=== PATIENT | female | born 1960 | race Caucasian/White ===

== ENCOUNTER 2023-07-22 11:40 | Outpatient (REF) | payer MEDICARE, MEDICAID, SELFPAY ==
[2023-07-22 12:10] LABS: MANUAL DIFF FLAG NO
[2023-07-22 12:27] LABS: Basophils Absolute Auto 0.1 X10*3/uL (0.0-0.2); Basophils Percent Auto 0.9 % (0-2); Eosinophils Absolute Auto 0.2 X10*3/uL (0.0-0.4); Eosinophils Percent Auto 4.2 % (0-4); Hematocrit 40.1 % (37.0-47.0); Hemoglobin 13.6 g/dl (12.0-16.0); Imm Gran Abs Auto 0.01 X10*3/uL (0.00-0.03); Imm Gran Pct Auto 0.2 % (0.0-0.4); Lymphocytes Absolute Auto 2.6 X10*3/uL (1.2-4.9); Lymphocytes Percent Auto 44.4 % (20-40); Mean Corpuscular HGB Conc 33.9 g/dl (31.0-35.0); Mean Corpuscular Hemoglobin 29.4 pg (27.0-33.0); Mean Corpuscular Volume 86.8 fL (80.0-98.0); Mean Platelet Volume 9.7 fL (9.4-12.3); Monocytes Absolute Auto 0.6 X10*3/uL (0.1-1.2); Monocytes Percent Auto 10.5 % (2-11); Neutrophils Absolute Auto 2.3 x10*3/uL (2.0-8.3); Neutrophils Percent Auto 39.8 % (45-73); Platelet Count 316 X10*3/uL (160-400); Red Blood Count 4.62 X10*6/uL (4.20-5.50); White Blood Count 5.7 X10*3/uL (4.8-10.8)
[2023-07-22 13:16] LABS: Alanine Aminotransferase 16 U/L (0-31); Albumin Level 4.2 g/dL (3.5-5.0); Alkaline Phosphatase 72 U/L (39-117); Anion Gap 10 (12-20); Aspartate Amino Transferase 22 U/L (5-31); Bilirubin Total 0.4 mg/dL (0.0-1.0); Blood Urea Nitrogen 6 mg/dL (9-16); Calcium 9.6 mg/dL (8.4-10.2); Carbon Dioxide 30 mmol/L (22-29); Chloride 106 mmol/L (96-108); Estimated Glomerular Filt Rate > 60; Glucose Random 99 mg/dL (60-115); Potassium 4.1 mmol/L (3.3-5.1); Sodium 142 mmol/L (135-145); Total Protein 7.4 g/dL (6.5-8.0)
[2023-07-22 13:21] LABS: Free T4 (Free Thyroxine) 1.12 ng/dL (0.71-1.85); Thyroid Stimulating Hormone 2.98 uIU/mL (0.32-4.0)
[2023-07-22 13:22] LABS: Vitamin B12 862 pg/mL (200-900)
[2023-07-23 10:09] LABS: Triiodothyronine T3 Free 3.3 pg/mL (2.3-4.2); Triiodothyronine T3 Total 109 ng/dL (76-181)
== END 2023-07-22 11:41 | disposition home or self-care (01) ==
LOC: HO.LAB 11:40
PROVIDERS: PCP Internal Medicine; Visit Provider Psychiatry & Neurology Psychiatry
DX: F32.9 Major depressive disorder, single episode, unspecified (principal); E03.9 Hypothyroidism, unspecified
CPT/HCPCS: 36415; 80053; 82607; 84439; 84443; 84480; 84481; 85025

== ENCOUNTER 2023-07-29 14:15 | Outpatient (RCR) | payer MEDICARE, MEDICAID, SELFPAY ==
[2023-07-15 10:55] VITALS: BMI 21.5
--- NOTE | 2023-07-15 11:36 | PC.ADMIT ---
Patient is a 63 year old female who was referred to [facility] by crisis d/t increased depression with SI and plan however no intent. Reportedly patient reported this is her baseline. Per records patient has history of SA 15 years ago via overdose and history of Inpatient level of care 20 years ago. Patient is alert and oriented x4. Calm and cooperative. Patient currently denied any SI, Plan or Intent to kill herself. She was given a copy of her safety plan if needed. She reports she is here as she is struggling with depression and anxiety. Stated a trigger to her symptoms is living in pubic housing for the past 6 years and does not find it pleasant. She also stated her mother 2 years ago. Patient's medications reconciled with patient and patient's phamacy. She reports taking her medicatons as prescibed. She reports history of heavy ETOH use in her 20's and a history of using prescription Oxycontin for 5 years even though she felt she did not need it anymore. She said she she started using this after she had shoulder surgery. Patient reports she is currently using Marijuana daily a few puffs every night however she stopped using 2 days ago as she feels she is using it too much and it is not working. Identifies her adult children are supportive.
[2023-07-15 12:05] VITALS: BP 144/87; PULSE 66
[2023-07-15 15:30] LABS: Amphetamine Screen Urine Not Detected (Not Detect); Barbiturates, Urine Not Detected (Not Detect); Benzodiazepines Screen Urine POSITIVE (Not Detect); Cannabinoid Screen Urine POSITIVE (Not Detect); Cocaine Screen Urine Not Detected (Not Detect); Fentanyl, urine Not Detected (Not Detect); Opiate Screen Urine Not Detected (Not Detect); Phencyclidine Screen Urine Not Detected (Not Detect)
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
--- NOTE | 2023-07-21 15:38 | PHP/IOPCOSI ---
Vinayak treatment plan was reviewed by the [facility] clinical staff. Their case has been opened and reviewed.
--- NOTE | 2023-07-22 23:46 | HO.PHPPROGNO ---
Subjective Subjective Date of Service: 07/22/23 Reason For Visit: depression Interim History: Cruzito seen for follow up. Doing okay She reports things are going well at the program. It's an eye senior instrumentation engineer . She reports her mood as still depressed, but less dysthymic and hopelessness or feelings of helplessness. Sleep is still disrupted with the Ambien. She has Xanax which she usually takes in the evenings, not really much during the day.Sometimes in the afternoon. She admits she has been napping in the afternoon after the program. I suggest she would probably sleep better at night if she did not take a 2-3 hour nap in the late afternoon into the evening, however she says she enjoys this practice and is probably not going to stop napping. She is agreeable to increasing dose of Zoloft to 75 mg qd. She denies any SI, HI, AH, VH. Medication Compliance: Yes Side effects from medications: No Attending Groups: Yes Review of Systems Acute medical concerns: No Mental Status Exam Mental Status Exam Narrative: Alert, oriented, in no acute distress. Calm, cooperative, engaged. No psychomotor agitation or neurovegetative retardation. Eye contact maintained. Mood okay , affect variable, mood congruent. Speech normal. Thought process linear, coherent. Thought content related to stressors, denies any helplessness, hopelessness or SI.? No aggressive ideation or HI. No paranoia or delusional content elicited. No evidence of psychosis. Insight and judgment fair Diagnostics Vital Signs (24Hr): BMI result Body Mass Index 21.5 Assessment & Plan Assessment & Plan (1) Mood disorder: Status: Acute Code(s): F39 - Unspecified mood [affective] disorder (2) Other phobic anxiety disorders: Status: Acute Code(s): F40.8 - Other phobic anxiety disorders (3) PTSD (post-traumatic stress disorder): Status: Acute Code(s): F43.10 - Post-traumatic stress disorder, unspecified (4) Cannabis abuse: Status: Acute Code(s): F12.10 - Cannabis abuse, uncomplicated (5) Alcohol dependence in sustained full remission: Status: Acute Code(s): F10.21 - Alcohol dependence, in remission Plan increase sertraline to 75 mg qd avoid napping Patient educated on: diagnosis, medication risk/benefits and substance abuse Informed Consent: understands Reason for contiued partial hosp. stay Substantial Risk for: inability to function and med/psych decompensation Certification I certify that partial hospital treatment is medically necessary due to the symptoms and problems resulting from the patient's mental illness and the failure to treat the patient at the partial hospital level of care would likely result in the patient requiring inpatient psychiatric care which could not be prevented at a less intensive level of care. Total time managing care of this patient today __30__ minutes. Discharge Plan Discharge Attending provider: Aletha Branham Medications: New alprazolam 0.5 mg tablet 0.5 mg PO QID PRN (Reason: anxiety) Qty: 60 0RF Continued propranolol 20 mg tablet 20 mg PO DAILY Vraylar 1.5 mg capsule 1.5 mg PO DAILY atorvastatin 20 mg tablet 20 mg PO DAILY sucralfate 1 gram Tablet 1 g PO DAILY levothyroxine 25 mcg tablet 25 mcg PO DAILY omeprazole 20 mg capsule,delayed release(DR/EC) 20 mg PO DAILY Changed sertraline 50 mg tablet 75 mg PO QAM 30 Days Qty: 45 0RF Discontinued alprazolam 1 mg tablet 1 mg PO TID PRN (Reason: anxiety) Stand Alone Forms: Patient Portal Discharge page Patient Education: Mood Disorders (DC)
--- NOTE | 2023-07-28 13:12 | PC.NURSE ---
Quiana stated she had a recent EKG done this month at her PCP's office. I called the office of her PCP Dr Ashtyn Burr and requested the EKG results and provided them with our fax number. Awaiting results.
--- NOTE | 2023-07-29 22:37 | HO.PHPPROGNO ---
Subjective Subjective Date of Service: 07/29/23 Reason For Visit: depression Interim History: Patient seen for follow-up, anticipating discharge at the end of program today.? Reports no acute issues or concerns. Medication compliant, medications well-tolerated. Denies any adverse effects.? She looks forward to meeting new therapist on Tuesday at [facility]. Mood is stable.? Denies any hopelessness or SI. Denies thoughts of harming self or others at this time. Denies any aggressive ideation or HI. Denies any paranoia or AH or VH. Sleep, appetite, energy stable. Mental Status Exam Mental Status Exam Narrative: Alert, oriented, in no acute distress. Calm, cooperative, engaged. No psychomotor agitation or neurovegetative retardation. Eye contact maintained. Mood euthymic, affect variable, mood congruent. Speech normal. Thought process linear, coherent. Thought content related to stressors, denies any helplessness, hopelessness or SI.? No aggressive ideation or HI. No paranoia or delusional content elicited. No evidence of psychosis. Insight and judgment fair Diagnostics Vital Signs (24Hr): BMI result Body Mass Index 21.5 Assessment & Plan Assessment & Plan (1) Major depressive disorder: Status: Acute Code(s): F32.9 - Major depressive disorder, single episode, unspecified (2) PTSD (post-traumatic stress disorder): Status: Acute Code(s): F43.10 - Post-traumatic stress disorder, unspecified (3) Other phobic anxiety disorders: Status: Acute Code(s): F40.8 - Other phobic anxiety disorders (4) Alcohol dependence in sustained full remission: Status: Acute Code(s): F10.21 - Alcohol dependence, in remission (5) Cannabis abuse: Status: Acute Code(s): F12.10 - Cannabis abuse, uncomplicated Plan Discharge from [facility] continue regular medications will defer further medication management to outpatient provider Refills sent to pharmacy Patient educated on: diagnosis, medication risk/benefits and substance abuse Informed Consent: understands Reason for contiued partial hosp. stay Substantial Risk for: stable for discharge Certification I certify that partial hospital treatment is medically necessary due to the symptoms and problems resulting from the patient's mental illness and the failure to treat the patient at the partial hospital level of care would likely result in the patient requiring inpatient psychiatric care which could not be prevented at a less intensive level of care. Total time managing care of this patient today __30__ minutes. Discharge Plan Discharge Attending provider: Aletha Branham Medications: New alprazolam 0.5 mg tablet 0.5 mg PO QID PRN (Reason: anxiety) Qty: 60 0RF Continued propranolol 20 mg tablet 20 mg PO DAILY Vraylar 1.5 mg capsule 1.5 mg PO DAILY atorvastatin 20 mg tablet 20 mg PO DAILY sucralfate 1 gram Tablet 1 g PO DAILY levothyroxine 25 mcg tablet 25 mcg PO DAILY omeprazole 20 mg capsule,delayed release(DR/EC) 20 mg PO DAILY Changed sertraline 50 mg tablet 75 mg PO QAM 30 Days Qty: 45 0RF Discontinued alprazolam 1 mg tablet 1 mg PO TID PRN (Reason: anxiety) Stand Alone Forms: Patient Portal Discharge page Patient Education: Mood Disorders (DC)
== END 2023-07-29 23:59 | disposition home or self-care (01) ==
LOC: HO.PHPA 14:15
PROVIDERS: Visit Provider Psychiatry & Neurology Psychiatry
DX: F39 Unspecified mood [affective] disorder (principal); F40.8 Other phobic anxiety disorders; F32.9 Major depressive disorder, single episode, unspecified; F43.10 Post-traumatic stress disorder, unspecified; F12.10 Cannabis abuse, uncomplicated; F10.21 Alcohol dependence, in remission; Z79.899 Other long term (current) drug therapy
CPT/HCPCS: 80307; 90791; 90853

== ENCOUNTER → 2023-07-29 14:15 | Outpatient (BNV) | payer MEDICARE, MEDICAID, SELFPAY | PROVIDERS: Visit Provider Psychiatry & Neurology Psychiatry | DX: F39 Unspecified mood [affective] disorder (principal); F40.8 Other phobic anxiety disorders; F43.10 Post-traumatic stress disorder, unspecified; F12.10 Cannabis abuse, uncomplicated; F10.21 Alcohol dependence, in remission | CPT/HCPCS: 90792; 99213 ==

== ENCOUNTER → 2024-03-16 08:57 | Outpatient (REF) | payer MEDICARE, MEDICAID, SELFPAY ==
--- NOTE | 2024-03-16 09:07 | ECG_ITS ---
Test Reason : qtc check Blood Pressure : / mmHG Vent. Rate : 065 BPM Atrial Rate : 065 BPM P-R Int : 160 ms QRS Dur : 086 ms QT Int : 388 ms P-R-T Axes : 068 045 035 degrees QTc Int : 403 ms Normal sinus rhythm Normal ECG No previous ECGs available Referred By: Aletha Branham Electronically Signed By:NAIF HESS MD
[2024-03-16 09:22] LABS: MANUAL DIFF FLAG NO
[2024-03-16 09:44] LABS: Basophils Percent Auto 0.9 % (0-2); Eosinophils Absolute Auto 0.2 X10*3/uL (0.0-0.4); Eosinophils Percent Auto 4.9 % (0-4); Hematocrit 36.2 % (37.0-47.0); Hemoglobin 11.8 g/dl (12.0-16.0); Lymphocytes Absolute Auto 1.6 X10*3/uL (1.2-4.9); Lymphocytes Percent Auto 37.2 % (20-40); Mean Corpuscular HGB Conc 32.6 g/dl (31.0-35.0); Mean Corpuscular Hemoglobin 28.5 pg (27.0-33.0); Mean Corpuscular Volume 87.4 fL (80.0-98.0); Mean Platelet Volume 9.4 fL (9.4-12.3); Monocytes Absolute Auto 0.6 X10*3/uL (0.1-1.2); Monocytes Percent Auto 13.2 % (2-11); Neutrophils Absolute Auto 1.9 x10*3/uL (2.0-8.3); Neutrophils Percent Auto 43.8 % (45-73); Platelet Count 281 X10*3/uL (160-400); Red Blood Count 4.14 X10*6/uL (4.20-5.50); Red Cell Distribution Width 13.1 % (11.0-16.0); White Blood Count 4.3 X10*3/uL (4.8-10.8)
[2024-03-16 09:50] LABS: Appearance Urine Clear; Color Urine Yellow; Glucose Urine UA Negative (Negative); Leukocyte Esterase Urine Negative (Negative); Nitrite Urine Negative (Negative); PH 5.5 (5.0-9.0); Specific Gravity - Urine 1.015 (1.005-1.025); Urine Blood Negative (Negative); Urine Ketones Negative (Negative); Urine Protein Negative (Neg-Trace)
[2024-03-16 09:51] LABS: Estimated Average Glucose 105 mg/dL; Hemoglobin A1C 106.5603 umol/L; Hemoglobin A1c % 5.3 % (<6.0); Total Hemoglobin (HGBA1C) 3056.6534 umol/L
[2024-03-16 10:25] LABS: Erythrocyte Sedimentation Rate 7 MM/HR (0-20)
[2024-03-16 10:55] LABS: Folate 5.9 ng/mL (> or = 4.0); Vitamin B12 570 pg/mL (200-900)
[2024-03-16 12:07] LABS: Alanine Aminotransferase 15 U/L (0-31); Albumin Level 3.9 g/dL (3.5-5.0); Alkaline Phosphatase 62 U/L (39-117); Anion Gap 11 (12-20); Aspartate Amino Transferase 20 U/L (5-31); Bilirubin Total 0.4 mg/dL (0.0-1.0); Blood Urea Nitrogen 6 mg/dL (9-16); C Reactive Protein 0.12 mg/dL (< or = 0.50); Calcium 8.8 mg/dL (8.4-10.2); Carbon Dioxide 28 mmol/L (22-29); Chloride 109 mmol/L (96-108); Cholesterol 188 mg/dL (<200); Estimated Glomerular Filt Rate > 60; Glucose Fasting 87 mg/dL (60-99); HDL Cholesterol 60 mg/dL (>40); Iron 76 mcg/dL (30-160); Magnesium 2.3 mg/dL (1.6-2.6); Percent Iron Saturation 29 % (15-50); Potassium 3.9 mmol/L (3.3-5.1); Sodium 144 mmol/L (135-145); Total Iron Binding Capacity 259 mcg/dL (228-428); Total Protein 6.9 g/dL (6.5-8.0); Unsaturated Iron Binding 183 ug/dL
[2024-03-16 12:24] LABS: Ferritin 30 ng/mL (10-250); Free T4 (Free Thyroxine) 0.92 ng/dL (0.71-1.85); LDL Cholesterol Calculated 103 mg/dL (<100); Thyroid Stimulating Hormone 3.08 uIU/mL (0.32-4.0); Triglycerides 125 mg/dL (<150); Vitamin D 25-OH Total 38.8 ng/mL (>30)
[2024-03-19 14:09] LABS: Anti Nuclear Antibody Screen NEGATIVE (NEGATIVE)
[2024-03-19 18:48] LABS: Homocysteine 13.3 umol/L (<10.4)
[2024-03-20 04:09] LABS: Zinc 75 mcg/dL (60-130)
[2024-03-20 12:43] LABS: Calcium, Ionized 5.1 mg/dL (4.7-5.5)
[2024-03-21 15:27] LABS: Vitamin B6 7.1 ng/mL (2.1-21.7)
[2024-03-22 01:33] LABS: Vitamin A 34 mcg/dL (38-98)
[2024-03-22 15:24] LABS: Vitamin B1 10 nmol/L (8-30)
== END ==
LOC: HO.CARD 08:57
PROVIDERS: PCP Internal Medicine; Visit Provider Psychiatry & Neurology Psychiatry
DX: F32.9 Major depressive disorder, single episode, unspecified (principal); F40.8 Other phobic anxiety disorders; E03.9 Hypothyroidism, unspecified
CPT/HCPCS: 36415; 80053; 80061; 81003; 82180; 82306; 82330; 82550; 82607; 82728; 82746; 83036; 83090; 83540; 83735; 83970; 84100; 84134; 84207; 84425; 84439; 84443; 84590; 84630; 85025; 85652; 86038; 86140; 93005

== ENCOUNTER → 2024-03-16 09:07 | Outpatient (BNV) | payer MEDICARE, MEDICAID, SELFPAY | PROVIDERS: PCP Internal Medicine; Visit Provider Internal Medicine Cardiovascular Disease | DX: I45.9 Conduction disorder, unspecified (principal) | CPT/HCPCS: 93010 ==

== ENCOUNTER 2024-03-26 10:00 | Outpatient (RCR) | payer MEDICARE, MEDICAID, SELFPAY ==
[2024-03-08 11:36] VITALS: BMI 22.3
[2024-03-08 11:37] VITALS: BP 101/72; PULSE 64; TEMP 37.1
--- NOTE | 2024-03-08 12:39 | PC.ADMIT ---
Patient is a 63 year female who was referred to [facility] by [facility] behavioral health unit where she was admitted from 02/25-02/29/24 S/P overdose. Patient was admitted for 3 days and signed a 3 day notice to leave the facility as she did not like the environment/[place] of the inpatient unit. She was subsequently discharged. Patients toxicology screen was positive for Oxycodone and Benzodiazapines. Patient reports she took old prescription of Vicodin 6 tabs and 30 tabs of prescription Xanax prior to going to bed and woke up the next morning. (patient denied having any prescription medication left over currently). She stated she did not want to and only wanted to hurt herself. Patient stated she woke up the next morning to her phone ringing and answered her phone it was her daughter. She stated she was supposed to meet her daughter somewhere however she did not show up and her daughter called looking for her. She stated that she woke up at 0900 to the phone ringing and she felt she was blacking out about an hour later and fell on the refrigerator. She stated she has a heart monitor that she purchased from [employer] and put it on and saw that she was very tachycardic and this scared her so she called an ambulance. She stated no medical intervention regarding OD attempt. When asked how she felt about the SA currently she reports she regrets the attempt and she feels it was an eye manager compensation for her. She reports she has many supports including her BF who picked her up from the hospital. She reports she is thinking about getting back together with her BF as they have been together for many years and were for 2 years. She also reports she has supports from friends in her neighbor [place], her sponsor, a friend, and her children. Patient reports [facility] has been helpful in the past and feels it has been helpful currently stating, It helps we did a work sheet on self care . Patient is alert and oriented x4. Calm and cooperative. Thoughts are clear and logical. She denied SI, No HI. She denied any thoughts to kill herself or any plan or intent to kill herself. She presented with depressed mood and anxious affect. She was given a copy of her safety plan if needed. Medication reconciled with patient and patient's pharmacy. She reports taking medications as prescribed however decreased the dose of Zoloft from 150 mg to 100 mg as she stated when she takes the full dose she feels, out of it . Dr Branham is aware.
--- NOTE | 2024-03-09 09:29 | PC.NURSE ---
Patient notified staff on intake and yesterday that she would not be at [facility] on 03/09/24 as she had an appointment with her PCP. Plans to be here on Tuesday.
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
--- NOTE | 2024-03-23 13:21 | HO.PHP ---
Quiana contacted the program to state that she will not be in attendnace to the program due to not feeling well. [facility] staff admin, Shanelle, assessed for any safety concerns, in which Quiana reported none. Quiana was informed a clinician will be contacting her because she was scheduled to discharge today. Quiana voiced that she thought it was Tuesday.
--- NOTE | 2024-03-23 13:22 | HO.PHP ---
[facility] staff member contacted Quiana to inform her that today is her scheduled last day but because her insurance has allowed additional time, she can come to program on Tuesday. Quiana was in agreement. [facility] staff member assessed any safety concerns, in which no SI, plan or intent were mentioned and Quiana voiced she will be in attendance to program Tuesday.
[2024-03-26 15:15] VITALS: RESP 16
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
== END 2024-03-26 23:59 | disposition home or self-care (01) ==
LOC: HO.PHPA 10:00
PROVIDERS: Visit Provider Psychiatry & Neurology Psychiatry
DX: F33.3 Major depressive disorder, recurrent, severe with psychotic symptoms (principal); F40.8 Other phobic anxiety disorders; F43.10 Post-traumatic stress disorder, unspecified; F81.9 Developmental disorder of scholastic skills, unspecified; G31.84 Mild cognitive impairment of uncertain or unknown etiology; F10.21 Alcohol dependence, in remission; F12.21 Cannabis dependence, in remission; Z79.899 Other long term (current) drug therapy
CPT/HCPCS: 90791; 90853

== ENCOUNTER → 2024-05-01 08:15 | Outpatient (BNV) | payer MEDICARE, MEDICAID, SELFPAY | PROVIDERS: Visit Provider Psychiatry & Neurology Psychiatry | DX: F33.2 Major depressive disorder, recurrent severe without psychotic features (principal); F39 Unspecified mood [affective] disorder; F13.10 Sedative, hypnotic or anxiolytic abuse, uncomplicated; F41.1 Generalized anxiety disorder; F43.10 Post-traumatic stress disorder, unspecified; F11.10 Opioid abuse, uncomplicated; F10.21 Alcohol dependence, in remission; F81.9 Developmental disorder of scholastic skills, unspecified | CPT/HCPCS: 90792; 99213 ==

== ENCOUNTER 2024-05-14 08:00 | Outpatient (RCR) | payer MEDICARE, MEDICAID, SELFPAY ==
[2024-04-27 11:03] VITALS: BMI 22.6
[2024-04-27 11:04] VITALS: BP 110/62; PULSE 80; TEMP 37
--- NOTE | 2024-04-27 16:39 | PC.ADMIT ---
Patient is a 63 year old single female who was referred to [facility] by [facility] where she was admitted from 04/04/24-04/16/24 S/P overdose on Xanax and Oxycontin. According to records patient has had 5 previous inpatient admissions starting at age 17 and 4 prior overdoses. Patient was admitted medically to CCU then to the Medical floor then to inpatient behavioral health unit. Patient reportedly called for help after the S/A via overdose however patient does not remember this as she reports she blacked out. Patients daughter reportedly went to patients home and found a pill container with 30 tabs of Xanax and 12 Oxycontin pills and disposed of them. While on the unit patient reportedly stated she has a substance abuse problem. Patient stated they wanted her to go into a 90 day substance use treatment program. This is the first time that patient has acknowledged this. While on the unit a section 35 was discussed and was filed. Patient reports the police came to the unit and handcuffed her and took her to court. She stated her daughter testified against her in court. She stated the ice cream chef told her she won. Per records [facility] had VNA services in place for patient however patient stated she decided she did not want to have a VNA at this time. She stated she felt it could interfere with her treatment at [facility] and she wants to administer the medications herself. Patient is alert and oriented x4. Calm and cooperative. She presented with anxious mood and affect. She denied SI, no HI. She was given a copy of her safety plan if needed. Regarding the suicide attempt patient stated that she felt terrible that she did not get help before she overdosed. Medications reconciled with patient and patient's discharge paperwork. Patient does not believe she has issues with substances at this time. Patient reports that she had an issue with alcohol in 1986 and attends AA meetings daily and has a sponsor. She stated that she had a left over prescription for Oxycontin from shoulder surgery 5 years ago. Patient has a history of being prescribed Xanax for many years. Xanax has been discontinued. Of note, Per previous [facility] nursing assessment patient was referred to [facility] by [facility] behavioral health unit where she was admitted from 02/25-02/29/24 S/P overdose. Patient was admitted for 3 days and signed a 3 day notice to leave the facility as she did not like the environment/[place] of the inpatient unit. She was subsequently discharged. Patients toxicology screen was positive for Oxycodone and Benzodiazapines. Patient reports she took old prescription of Vicodin 6 tabs and 30 tabs of prescription Xanax prior to going to bed and woke up the next morning. (patient denied having any prescription medication left over currently). She stated she did not want to and only wanted to hurt herself. Patient stated she woke up the next morning to her phone ringing and answered her phone it was her daughter. She stated she was supposed to meet her daughter somewhere however she did not show up and her daughter called looking for her. She stated that she woke up at 0900 to the phone ringing and she felt she was blacking out about an hour later and fell on the refrigerator. She stated she has a heart monitor that she purchased from [email or web address] and put it on and saw that she was very tachycardic and this scared her so she called an ambulance. She stated no medical intervention regarding OD attempt.
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
[2024-04-30 07:15] LABS: Amphetamine Screen Urine Not Detected (Not Detect); Barbiturates, Urine Not Detected (Not Detect); Benzodiazepines Screen Urine Not Detected (Not Detect); Buprenorphine Scr Not Detected (Not Detect); Cannabinoid Screen Urine Not Detected (Not Detect); Cocaine Screen Urine Not Detected (Not Detect); Fentanyl, urine Not Detected (Not Detect); Methadone Screen, Urine Not Detected (Not Detect); Opiate Screen Urine Not Detected (Not Detect); Oxycodone Screen Urine Not Detected (Not Detect); Phencyclidine Screen Urine Not Detected (Not Detect)
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
--- NOTE | 2024-05-02 15:32 | HO.PHP ---
Client's case has been opened and reviewed in team
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
--- NOTE | 2024-05-14 22:20 | P.PNPSP_ITS ---
Subjective Subjective Date of Service: 05/14/24 Reason For Visit: depression Diagnostics Vital Signs (24Hr): BMI result Body Mass Index 22.6 Assessment & Plan Certification I certify that partial hospital treatment is medically necessary due to the symptoms and problems resulting from the patient's mental illness and the failure to treat the patient at the partial hospital level of care would likely result in the patient requiring inpatient psychiatric care which could not be prevented at a less intensive level of care. Total time managing care of this patient today ____ minutes. Discharge Plan Discharge Attending provider: Aletha Branham Medications: New melatonin 5 mg capsule 5 mg PO .QHS PRN (Reason: sleep) Qty: 14 0RF lamotrigine 100 mg tablet 100 mg PO DAILY Qty: 14 0RF Continued hydroxyzine pamoate [Vistaril] 25 mg Capsule 25 mg PO TID PRN (Reason: Anxiety) Qty: 40 0RF pantoprazole 40 mg Tablet,Delayed Release (Dr/Ec) 40 mg PO DAILY Qty: 14 0RF trazodone 50 mg Tablet 50 mg PO BEDTIME PRN (Reason: Insomnia) Qty: 14 0RF sertraline 50 mg tablet 50 mg PO DAILY Qty: 14 0RF lurasidone [Latuda] 60 mg Tablet 60 mg PO DAILY Qty: 14 0RF Rx Instructions: must administer with food (at least 350 calories) atorvastatin 20 mg tablet 20 mg PO DAILY Rx Instructions: Last filled 12/29/23 90 day supply levothyroxine 25 mcg tablet 25 mcg PO DAILY Patient Comments: Patient stated she forgot to take the last 3 days. Medication education provi ded along with medication adherence tips. metoprolol succinate 25 mg Tablet Extended Release 24 Hr 25 mg PO DAILY Discontinued lamotrigine 25 mg Tablet 50 mg PO BEDTIME Stand Alone Forms: Patient Portal Discharge page Patient Education: Benzodiazepine Abuse (DC), Mood Disorders (DC), Depression ( DC), Anxiety (GEN), Benzodiazepine Overdose (DC) Print Language: Czech
== END 2024-05-14 23:59 | disposition home or self-care (01) ==
LOC: HO.PHPA 08:00
PROVIDERS: Visit Provider Psychiatry & Neurology Psychiatry
DX: F33.2 Major depressive disorder, recurrent severe without psychotic features (principal); F39 Unspecified mood [affective] disorder; F13.10 Sedative, hypnotic or anxiolytic abuse, uncomplicated; F41.1 Generalized anxiety disorder; F43.10 Post-traumatic stress disorder, unspecified; F81.9 Developmental disorder of scholastic skills, unspecified; F11.10 Opioid abuse, uncomplicated; F10.21 Alcohol dependence, in remission; Z79.899 Other long term (current) drug therapy
CPT/HCPCS: 80307; 90791; 90853